=== PATIENT | female | born 1955 | race Caucasian/White ===

== ENCOUNTER 2018-03-19 11:30 | Day surgery (SDC) | payer OTHER | END 2018-03-19 15:42 | disposition home or self-care (01) | LOC: AMB-ENDOS 11:30 | DX: D12.4 Benign neoplasm of descending colon (principal); D12.5 Benign neoplasm of sigmoid colon; K64.3 Fourth degree hemorrhoids ==

== ENCOUNTER 2018-04-30 12:29 | Inpatient (IN) | payer OTHER ==
[~2018-04-30] VITALS: Ht 152.4 cm; Wt 80.3 kg
[2018-06-03] MEDS ORDERED: OXYC1TAB9 PO (15:17)
[2018-06-03] MEDS ORDERED: INTESTINEX680 M1 PO (15:17)
== END 2018-06-03 16:38 | disposition home or self-care (01) | DRG 331 ==
LOC: O/R 05-30 05:22 → SURG 05-30 05:22 → RECOVERY 05-30 09:00 → SURG 05-30 13:58
PROVIDERS: Surgery
PROC: 07TC4ZZ Resection of Pelvis Lymphatic, Percutaneous Endoscopic Approach (ICD-10-PCS; 2018-05-30)
PROC: 0DTF4ZZ Resection of Right Large Intestine, Percutaneous Endoscopic Approach (ICD-10-PCS; principal; 2018-05-30 09:00)
DX: D12.2 Benign neoplasm of ascending colon (principal); R59.0 Localized enlarged lymph nodes